=== PATIENT | male | born 1970 | race Caucasian/White ===

== ENCOUNTER → 2018-03-02 | Outpatient (CLI) | payer OTHER ==
--- NOTE | 2018-03-03 09:48 | PCVCIMAG ---
APPROVED REPORT Study performed: 03/02/2018 10:54:04 EXAM: Comprehensive 2D, Doppler, and color-flow Echocardiogram Patient Location: Echo lab Status: routine BSA: 2.25 HR: 63 bpmBP: 152/92 mmHg Rhythm: NSR, LVH Other Information Study Quality: Adequate Risk Factors: Cardiac Risk Factors: HTN Indications Abnormal ECG Dyspnea Chest Pain 2D Dimensions IVSd: 18.41 (7-11mm) LVDd: 45.21 mm PWd: 14.70 (7-11mm)Ascending Ao: 32.98 (22-36mm) LVDs: 31.35 (25-40mm) Left Atrium: 46.02 (27-40mm) Aortic Root: 31.79 mm LV Single Plane 4CH: 57.65 % LV Single Plane 2CH: 40.12 % Volumes Left Atrial Volume (Systole) Single Plane 4CH: 97.41 mLSingle Plane 2CH: 77.37 mL LA ESV Index: 41.00 mL/m2 Aortic Valve AoV Peak Joshua.: 2.01 m/s AO Peak Gr.: 17.27 mmHgLVOT Max P.51 mmHg LVOT Max V: 1.70 m/s Mitral Valve E/A Ratio: 1.5 MV Decel. Time: 231.50 ms MV E Max Joshua.: 1.29 m/s MV A Joshua.: 0.88 m/s MV PHT: 67.13 ms IVRT: 96.89 ms Pulmonary Valve PV Peak Joshua.: 1.17 m/sPV Peak Gr.: 5.50 mmHg Pulmonary Vein P Vein S: 0.41 m/sP Vein A: 0.25 m/s P Vein D: 0.50 m/sP Vein A Dur.: 114.2 msec P Vein S/D Ratio: 0.82 Tricuspid Valve TR Peak Joshua.: 3.14 m/s TR Peak Gr.: 39.38 mmHg Left Ventricle The left ventricle is normal size. There is normal LV segmental wall motion. Moderate-severe apical hypertrophy. Left ventricular systolic function is normal. The left ventricular ejection fraction is within the normal range. LVEF is 65-70%. Grade II - pseudonormal filling dynamics. Right Ventricle The right ventricle is normal size. The right ventricular systolic function is normal. Atria Left atrium is mildly dilated. The right atrium size is normal. Aortic Valve The aortic valve is normal in structure. No aortic regurgitation is present. There is no aortic valvular stenosis. Mitral Valve The mitral valve is normal in structure. Moderate mitral regurgitation. No evidence of mitral valve stenosis. Tricuspid Valve The tricuspid valve is normal in structure. Mild to moderate tricuspid regurgitation with PAP of 46 mmHg. Pulmonic Valve The pulmonary valve is normal in structure. Trace pulmonic regurgitation. Great Vessels The aortic root is normal in size. IVC is normal in size and collapses >50% with inspiration. Pericardium There is no pericardial effusion. There is no pleural effusion. <Conclusion> The left ventricle is normal size. LVEF is 65-70%. Left atrium is mildly dilated. The aortic valve is normal in structure. No aortic regurgitation is present. The mitral valve is normal in structure. Moderate mitral regurgitation. The tricuspid valve is normal in structure. Mild to moderate tricuspid regurgitation with PAP of 46 mmHg. The pulmonary valve is normal in structure. Trace pulmonic regurgitation. There is no pericardial effusion.
== END | disposition home or self-care (01) ==
LOC: PCVCIMAG 13:52
PROVIDERS: ATTEND Internal Medicine
DX: I08.1 Rheumatic disorders of both mitral and tricuspid valves (principal); R06.00 Dyspnea, unspecified; R94.31 Abnormal electrocardiogram [ECG] [EKG]; R07.9 Chest pain, unspecified; E78.5 Hyperlipidemia, unspecified; R06.09 Other forms of dyspnea
CPT/HCPCS: 93306